=== PATIENT | male | born 1955 | race Caucasian/White ===

== ENCOUNTER → 2018-12-01 | Outpatient (CLI) | payer OTHER ==
[~2018-12-01] MED LIST: FISH OIL 1,001000 M2 PO; GLUCOPHAGE1000 MG PO; GLYBURIDE 5 MG T5 M1 PO; LEVEMIR SUBQ; LISINOPRIL-HCT1 EAC1 PO; SENOKOT-S1 TA1 PO; SIMVASTATIN20 MG PO
== END ==
LOC: PET 11:35
DX: C77.2 Secondary and unspecified malignant neoplasm of intra-abdominal lymph nodes (principal); J98.59 Other diseases of mediastinum, not elsewhere classified; K76.0 Fatty (change of) liver, not elsewhere classified